=== PATIENT | female | born 1935 | race Caucasian/White ===

== ENCOUNTER 2018-03-07 22:47 | Inpatient (IN) | payer MEDICARE ==
[~2018-03-07] VITALS: Ht 162.6 cm; Wt 83.1 kg
[~2018-03-07 22:47] MED LIST: CEFD300C37 PO; CEPH-376 PO; CIPR250T27 PO; DOCU100C33 PO; FURO-92 PO; FURO-93 PO; FURO40TA6 PO; FURO80TA77 PO; GLIP5TAB10 PO; HYDR25TA11 PO; LISI1TAB7 PO; LOSA25TA6 PO; PIOG45TA64 PO; POLY17PO5 PO; SIMV80TA7 PO
[2018-03-07] MEDS ORDERED: SODIUM CHLORIDE FLUSH 10ML SYR IVF ONE (23:30)
[2018-03-08 00:22] LABS: CULTURE INDICATED? YES; MICROSCOPIC INDICATED
[2018-03-08 00:30] LABS: BASOPHILS # (AUTO) 0.01 x10^3/uL (0-0.1); BASOPHILS % (AUTO) 0 % (0-1); EOSINOPHILS # (AUTO) 0.26 x10^3/uL (0-0.4); EOSINOPHILS % (AUTO) 4 % (1-7); LYMPHOCYTES # (AUTO) 1.41 x10^3/uL (1-3.4); LYMPHOCYTES % (AUTO) 24 % (22-44); MD NO; MEAN CORPUSCULAR HEMOGLOBIN 32.4 pg (27.0-34.8); MEAN CORPUSCULAR HGB CONC 33.3 g/dL (32.4-35.8); MEAN CORPUSCULAR VOLUME 97.3 fL (80-100); MEAN PLATELET VOLUME 7.3 fL (7.4-10.4); MONOCYTES # (AUTO) 0.47 x10^3/uL (0.2-0.8); MONOCYTES % (AUTO) 8 % (2-9); NEUTROPHILS # (AUTO) 3.75 x10^3/uL (1.8-6.8); NEUTROPHILS % (AUTO) 64 % (42-75); PLATELET COUNT 311 x10^3/uL (130-400); RED BLOOD COUNT 3.17 x10^6/uL (3.82-5.3); RED CELL DISTRIBUTION WIDTH 13.9 % (9.6-15.2)
[2018-03-08 00:38] LABS: ALANINE AMINOTRANSFERASE 20 U/L (12-78); ALBUMIN 3.3 g/dL (3.4-5.0); ANION GAP 11 mmol/L (5-15); CALCIUM 9.2 mg/dL (8.5-10.1); CHLORIDE 108 mmol/L (98-107); INTERNATIONAL NORMALIZED RATIO 0.98 (0.93-1.1); PROTHROMBIN TIME 10.1 Seconds (9.6-11.5)
[2018-03-08 00:41] LABS: ALKALINE PHOSPHATASE 112 U/L (45-117); BILIRUBIN,TOTAL 0.3 mg/dL (0.2-1.0); CREATININE 1.87 mg/dL (0.55-1.02); TOTAL PROTEIN 8.1 g/dL (6.4-8.2)
[2018-03-08] MEDS ORDERED: CEFTRIAXONE PMX 1GM/50ML 50 ML ONE (02:09)
[2018-03-08] MEDS ORDERED: CEFTRIAXONE 1,000 MG in SODIUM CHLORIDE 0.9% 50 ML IV ONE (02:30)
[2018-03-08] MEDS ORDERED: GLYCERIN ADULT SUPP PR ONE (02:30)
[2018-03-08] MEDS ORDERED: CEFTRIAXONE PMX 1GM/50ML 50 ML IV ONE (03:00)
[2018-03-08 03:35] VITALS: BP 158/67
[2018-03-08 03:43] VITALS: BP 158/67
[2018-03-08] MEDS ORDERED: POLYETHYLENE GLYCOL 17 GM PACKET PO PRN (04:00)
[2018-03-08] MEDS ORDERED: BISACODYL 10 MG SUPP PR PRN (04:00)
[2018-03-08] MEDS ORDERED: MAGNESIUM CITRATE 300ML ORAL SOL PO ONE (04:00)
[2018-03-08] MEDS ORDERED: hydrALAzine 20 MG/ML, 1ML IVPush PRN (04:00)
[2018-03-08] MEDS ORDERED: DOCUSATE 100 MG CAPSULE PO PRN (04:00)
[2018-03-08] MEDS ORDERED: LABETALOL 5MG/ML, 20ML IVPush PRN (04:00)
[2018-03-08] MEDS ORDERED: ONDANSETRON ODT 4 MG PO PRN (04:00)
[2018-03-08] MEDS ORDERED: PROMETHAZINE 25 MG/ML, 1ML IM PRN (04:00)
[2018-03-08] MEDS ORDERED: ONDANSETRON 2MG/ML, 2ML IVPush PRN (04:00)
[2018-03-08] MEDS ORDERED: ACETAMINOPHEN 325 MG TABLET PO PRN (04:00)
[2018-03-08] MEDS: HEPARIN 5,000 UNITS/ML, 1ML SQ SCH ×3 (04:08→20:01)
[2018-03-08 04:41] LABS: FREE T4 (FREE THYROXINE) 1.16 ng/dL (0.76-1.46); THYROID STIMULATING HORMONE 2.99 mIU/L (0.358-3.740)
[2018-03-08 04:43] LABS: HEMOGLOBIN A1C 9.1 % (4.2-6.3)
[2018-03-08 08:46] VITALS: BP 151/65
[2018-03-08] MEDS: SENNA/DOCUSATE TABLET PO SCH ×2 (09:00→19:19)
[2018-03-08] MEDS: INSULIN LISPRO 100 UNITS/ML, PEN SQ-INSULIN SCH ×3 (12:50→20:01)
[2018-03-08 14:30] VITALS: BP 125/65
[2018-03-08 18:47] VITALS: BP 129/62
[2018-03-09 01:53] VITALS: BP 113/56
[2018-03-09] MEDS: CEFTRIAXONE PMX 1GM/50ML 50 ML IV SCH ×2 (02:22→09:27)
[2018-03-09] MEDS: HEPARIN 5,000 UNITS/ML, 1ML SQ SCH ×3 (04:18→21:28)
[2018-03-09 05:05] LABS: BASOPHILS # (AUTO) 0.02 x10^3/uL (0-0.1); BASOPHILS % (AUTO) 1 % (0-1); EOSINOPHILS # (AUTO) 0.23 x10^3/uL (0-0.4); EOSINOPHILS % (AUTO) 5 % (1-7); LYMPHOCYTES # (AUTO) 2.14 x10^3/uL (1-3.4); LYMPHOCYTES % (AUTO) 46 % (22-44); MD NO; MEAN CORPUSCULAR HEMOGLOBIN 33.4 pg (27.0-34.8); MEAN CORPUSCULAR HGB CONC 34.5 g/dL (32.4-35.8); MEAN CORPUSCULAR VOLUME 96.8 fL (80-100); MEAN PLATELET VOLUME 7.4 fL (7.4-10.4); MONOCYTES # (AUTO) 0.45 x10^3/uL (0.2-0.8); MONOCYTES % (AUTO) 10 % (2-9); NEUTROPHILS # (AUTO) 1.82 x10^3/uL (1.8-6.8); NEUTROPHILS % (AUTO) 39 % (42-75); PLATELET COUNT 278 x10^3/uL (130-400)
[2018-03-09 05:12] LABS: ALBUMIN 2.7 g/dL (3.4-5.0); ANION GAP 8 mmol/L (5-15); CALCIUM 8.2 mg/dL (8.5-10.1); CHLORIDE 110 mmol/L (98-107)
[2018-03-09 05:15] LABS: ALANINE AMINOTRANSFERASE 14 U/L (12-78); ALKALINE PHOSPHATASE 94 U/L (45-117); BILIRUBIN,TOTAL 0.2 mg/dL (0.2-1.0); CHOL/HDL RATIO 4.4; CHOLESTEROL, TOTAL 132 mg/dL (140-239); HDL CHOL % 23 % (28-40); HDL CHOLESTEROL (DIRECT) 30 mg/dL (40-60); LDL CHOLESTEROL,CALCULATED 73 mg/dL (54-169); LDL/HDL RATIO 2.4 (0.5-3.0); TOTAL PROTEIN 6.8 g/dL (6.4-8.2); TRIGLYCERIDES 147 mg/dL (50-200); VLDL CHOLESTEROL 29 mg/dL (0-25)
[2018-03-09 07:33] VITALS: BP 111/63
[2018-03-09] MEDS: INSULIN LISPRO 100 UNITS/ML, PEN SQ-INSULIN SCH ×4 (07:37→21:00)
[2018-03-09] MEDS: SENNA/DOCUSATE TABLET PO SCH ×2 (09:00→21:00)
[2018-03-09] MEDS: SODIUM CHLORIDE 0.9% 1,000 ML IV SCH ×2 (09:37→18:43)
[2018-03-09 12:40] VITALS: BP 135/69
[2018-03-09 18:40] VITALS: BP 159/71
[2018-03-10 01:49] VITALS: BP 126/64
[2018-03-10] MEDS: SODIUM CHLORIDE 0.9% 1,000 ML IV SCH ×2 (03:20→12:20)
[2018-03-10] MEDS: CEFTRIAXONE PMX 1GM/50ML 50 ML IV SCH (03:20)
[2018-03-10] MEDS: HEPARIN 5,000 UNITS/ML, 1ML SQ SCH ×2 (03:20→12:00)
[2018-03-10 05:14] LABS: BASOPHILS # (AUTO) 0.01 x10^3/uL (0-0.1); BASOPHILS % (AUTO) 0 % (0-1); EOSINOPHILS % (AUTO) 6 % (1-7); LYMPHOCYTES # (AUTO) 1.97 x10^3/uL (1-3.4); LYMPHOCYTES % (AUTO) 41 % (22-44); MD NO; MEAN CORPUSCULAR HEMOGLOBIN 33.6 pg (27.0-34.8); MEAN CORPUSCULAR HGB CONC 34.8 g/dL (32.4-35.8); MEAN CORPUSCULAR VOLUME 96.5 fL (80-100); MEAN PLATELET VOLUME 7.4 fL (7.4-10.4); MONOCYTES # (AUTO) 0.43 x10^3/uL (0.2-0.8); MONOCYTES % (AUTO) 9 % (2-9); NEUTROPHILS # (AUTO) 2.14 x10^3/uL (1.8-6.8); NEUTROPHILS % (AUTO) 44 % (42-75); PLATELET COUNT 243 x10^3/uL (130-400); RED BLOOD COUNT 2.51 x10^6/uL (3.82-5.3); RED CELL DISTRIBUTION WIDTH 14.1 % (9.6-15.2)
[2018-03-10 05:29] LABS: CALCIUM 8.3 mg/dL (8.5-10.1); CHLORIDE 114 mmol/L (98-107)
[2018-03-10 05:33] LABS: ANION GAP 12 mmol/L (5-15); CREATININE 1.39 mg/dL (0.55-1.02)
[2018-03-10 06:55] VITALS: BP 138/67
[2018-03-10] MEDS: INSULIN LISPRO 100 UNITS/ML, PEN SQ-INSULIN SCH ×2 (07:00→12:20)
[2018-03-10] MEDS: SENNA/DOCUSATE TABLET PO SCH (10:15)
[2018-03-10 12:54] VITALS: BP 153/70
[2018-03-10] MEDS ORDERED: CIPR500T87 PO (13:52)
== END 2018-03-10 17:29 | disposition home health service (06) | DRG 689 ==
LOC: ED 23:59 → EDIP 03-08 02:19 → 3NE 03-08 03:18
PROVIDERS: ADMIT Internal Medicine; ATTEND Internal Medicine
PROC: 0T9B70Z Drainage of Bladder with Drainage Device, Via Natural or Artificial Opening (ICD-10-PCS; principal; 2018-03-08)
DX: N30.91 Cystitis, unspecified with hematuria (principal); N17.0 Acute kidney failure with tubular necrosis; N18.4 Chronic kidney disease, stage 4 (severe); K56.41 Fecal impaction; E11.22 Type 2 diabetes mellitus with diabetic chronic kidney disease; D63.8 Anemia in other chronic diseases classified elsewhere; F03.90 Unspecified dementia, unspecified severity, without behavioral disturbance, psychotic disturbance, mood disturbance, and anxiety; I12.9 Hypertensive chronic kidney disease with stage 1 through stage 4 chronic kidney disease, or unspecified chronic kidney disease; K80.20 Calculus of gallbladder without cholecystitis without obstruction; K44.9 Diaphragmatic hernia without obstruction or gangrene; I87.2 Venous insufficiency (chronic) (peripheral); G89.29 Other chronic pain; Z86.14 Personal history of Methicillin resistant Staphylococcus aureus infection; Z79.899 Other long term (current) drug therapy; Z79.1 Long term (current) use of non-steroidal anti-inflammatories (NSAID); Z79.2 Long term (current) use of antibiotics; Z98.49 Cataract extraction status, unspecified eye
CPT/HCPCS: 36415; 74176; 80048; 80053; 80061; 81001; 82306; 82607; 82962; 83036; 83690; 83735; 84100; 84439; 84443; 85025; 85610; 85730; 87077; 87086; 87186; 96365; G0378; J0696; J1644; J1815; J7030

== ENCOUNTER 2018-05-28 11:18 | Inpatient (IN) | payer MEDICARE ==
[~2018-05-28] VITALS: Ht 162.6 cm; Wt 81.8 kg
[~2018-05-28 11:18] MED LIST changes: +CIPR500T87 PO; +LOSA25TA25 PO; -LOSA25TA6 PO
--- NOTE | 2018-05-28 11:50 | NUR ---
ASSUMED CARE FROM KELLI ALLISON AT THIS TIME.
--- NOTE | 2018-05-28 12:19 | NUR ---
PT ARRIVES TO ED WITH SEVERE BLADDER PAIN AND DISTENTION. PT ON ARRIVAL IS UNABLE TO LAY FLAT WITHOUT DISCOMFORT. PT REPORTS THAT SHE HAS ATTEMTPED TO SELF CATH X2 AT HOME AND NO URINE CAME OUT. PT REPORTS THAT SHE HAS URGENCY AND IS UNABLE TO GO. PT HAD MENDOZA INSERTED BY THIS RN AND EASILY 500CC OF URINE CAME OUT. PT WAS BLADDER SCANNED BEFORE HAND AND HAD >873ML. PT CONNECTED TO MONITORS AND CALL LIGHT IN REACH.
[2018-05-28 12:34] LABS: BASOPHILS # (AUTO) 0.02 x10^3/uL (0-0.1); BASOPHILS % (AUTO) 0 % (0-1); EOSINOPHILS # (AUTO) 0.15 x10^3/uL (0-0.4); EOSINOPHILS % (AUTO) 3 % (1-7); LYMPHOCYTES # (AUTO) 1.61 x10^3/uL (1-3.4); LYMPHOCYTES % (AUTO) 27 % (22-44); MD NO; MEAN CORPUSCULAR HEMOGLOBIN 33.3 pg (27.0-34.8); MEAN CORPUSCULAR HGB CONC 34.8 g/dL (32.4-35.8); MEAN CORPUSCULAR VOLUME 95.5 fL (80-100); MEAN PLATELET VOLUME 7.3 fL (7.4-10.4); MONOCYTES # (AUTO) 0.45 x10^3/uL (0.2-0.8); MONOCYTES % (AUTO) 8 % (2-9); NEUTROPHILS # (AUTO) 3.66 x10^3/uL (1.8-6.8); NEUTROPHILS % (AUTO) 62 % (42-75); PLATELET COUNT 259 x10^3/uL (130-400); RED BLOOD COUNT 2.95 x10^6/uL (3.82-5.3); RED CELL DISTRIBUTION WIDTH 13.1 % (9.6-15.2)
[2018-05-28 12:38] LABS: ALANINE AMINOTRANSFERASE 30 U/L (12-78); ALBUMIN 3.5 g/dL (3.4-5.0); ANION GAP 10 mmol/L (5-15); CALCIUM 9.1 mg/dL (8.5-10.1); CHLORIDE 106 mmol/L (98-107); CREATININE 2.51 mg/dL (0.55-1.02)
[2018-05-28 12:40] LABS: ALKALINE PHOSPHATASE 98 U/L (45-117); BILIRUBIN,TOTAL 0.3 mg/dL (0.2-1.0); TOTAL PROTEIN 7.8 g/dL (6.4-8.2)
[2018-05-28 12:41] LABS: CULTURE INDICATED? YES; MICROSCOPIC INDICATED
--- NOTE | 2018-05-28 13:27 | NUR ---
PIV PLACED IN PT. FOLER STILL DRAINING AT THIS TIME.
--- NOTE | 2018-05-28 13:45 | NUR ---
SPOKE WITH MD ABOUT SEPSIS, MD AT THIS TIME IS NOT CONCERNED FOR SEPSIS AT THIS TIME. MD TO DOCUMENT ON HIS CHART.
[2018-05-28] MEDS ORDERED: POLYETHYLENE GLYCOL 17 GM PACKET PO PRN ×2 (14:00)
[2018-05-28] MEDS ORDERED: LABETALOL 5MG/ML, 20ML IVPush PRN (14:00)
[2018-05-28] MEDS ORDERED: DOCUSATE 100 MG CAPSULE PO PRN (14:00)
[2018-05-28] MEDS ORDERED: CEFTRIAXONE PMX 1GM/50ML 50 ML IV ONE (14:00)
[2018-05-28] MEDS ORDERED: ONDANSETRON 2MG/ML, 2ML IVPush PRN (14:00)
[2018-05-28] MEDS ORDERED: BISACODYL 10 MG SUPP PR PRN (14:00)
[2018-05-28] MEDS ORDERED: ACETAMINOPHEN 325 MG TABLET PO PRN (14:00)
[2018-05-28 14:31] VITALS: BP 167/67
[2018-05-28] MEDS: HEPARIN 5,000 UNITS/ML, 1ML SQ SCH ×2 (15:13→22:17)
[2018-05-28] MEDS: CEFTRIAXONE PMX 1GM/50ML 50 ML IV SCH (16:37)
[2018-05-28] MEDS: INSULIN LISPRO 100 UNITS/ML, PEN SQ-INSULIN SCH ×2 (16:54→22:19)
[2018-05-28 19:45] VITALS: BP 118/51
[2018-05-28] MEDS: SIMVASTATIN 40 MG TABLET PO SCH (22:18)
[2018-05-28] MEDS: SODIUM CHLORIDE FLUSH 10ML SYR IVF SCH (22:19)
[2018-05-29 02:17] VITALS: BP 113/53
[2018-05-29 04:52] LABS: BASOPHILS # (AUTO) 0.02 x10^3/uL (0-0.1); BASOPHILS % (AUTO) 1 % (0-1); EOSINOPHILS # (AUTO) 0.23 x10^3/uL (0-0.4); EOSINOPHILS % (AUTO) 5 % (1-7); LYMPHOCYTES # (AUTO) 2.06 x10^3/uL (1-3.4); LYMPHOCYTES % (AUTO) 44 % (22-44); MD NO; MEAN CORPUSCULAR HEMOGLOBIN 33.4 pg (27.0-34.8); MEAN CORPUSCULAR HGB CONC 34.8 g/dL (32.4-35.8); MEAN PLATELET VOLUME 7.2 fL (7.4-10.4); MONOCYTES # (AUTO) 0.44 x10^3/uL (0.2-0.8); MONOCYTES % (AUTO) 9 % (2-9); NEUTROPHILS # (AUTO) 1.96 x10^3/uL (1.8-6.8); NEUTROPHILS % (AUTO) 42 % (42-75); PLATELET COUNT 243 x10^3/uL (130-400); RED BLOOD COUNT 2.61 x10^6/uL (3.82-5.3); RED CELL DISTRIBUTION WIDTH 13.2 % (9.6-15.2)
[2018-05-29 04:58] LABS: ANION GAP 8 mmol/L (5-15); CALCIUM 8.4 mg/dL (8.5-10.1); CHLORIDE 111 mmol/L (98-107); CREATININE 1.81 mg/dL (0.55-1.02)
[2018-05-29] MEDS: HEPARIN 5,000 UNITS/ML, 1ML SQ SCH ×3 (06:34→22:56)
[2018-05-29 06:42] VITALS: BP 116/62
[2018-05-29] MEDS: INSULIN LISPRO 100 UNITS/ML, PEN SQ-INSULIN SCH ×4 (07:00→22:57)
[2018-05-29] MEDS: SODIUM CHLORIDE FLUSH 10ML SYR IVF SCH ×2 (09:00→18:21)
[2018-05-29] MEDS: LOSARTAN 25MG TABLET PO SCH (09:55)
[2018-05-29] MEDS: PIOGLITAZONE 15 MG TABLET PO SCH (09:56)
[2018-05-29 12:43] VITALS: BP 133/63
[2018-05-29] MEDS: CEFTRIAXONE PMX 1GM/50ML 50 ML IV SCH (16:17)
[2018-05-29 20:00] VITALS: BP 108/52
[2018-05-29] MEDS: SIMVASTATIN 40 MG TABLET PO SCH (22:57)
[2018-05-30 02:36] VITALS: BP 111/63
[2018-05-30 05:59] LABS: BASOPHILS # (AUTO) 0.02 x10^3/uL (0-0.1); BASOPHILS % (AUTO) 1 % (0-1); EOSINOPHILS # (AUTO) 0.25 x10^3/uL (0-0.4); EOSINOPHILS % (AUTO) 5 % (1-7); LYMPHOCYTES # (AUTO) 2.12 x10^3/uL (1-3.4); LYMPHOCYTES % (AUTO) 42 % (22-44); MD NO; MEAN CORPUSCULAR HEMOGLOBIN 32.5 pg (27.0-34.8); MEAN CORPUSCULAR HGB CONC 33.7 g/dL (32.4-35.8); MEAN CORPUSCULAR VOLUME 96.3 fL (80-100); MEAN PLATELET VOLUME 7.5 fL (7.4-10.4); MONOCYTES # (AUTO) 0.41 x10^3/uL (0.2-0.8); MONOCYTES % (AUTO) 8 % (2-9); NEUTROPHILS # (AUTO) 2.25 x10^3/uL (1.8-6.8); NEUTROPHILS % (AUTO) 45 % (42-75); PLATELET COUNT 224 x10^3/uL (130-400); RED BLOOD COUNT 2.57 x10^6/uL (3.82-5.3)
[2018-05-30 06:15] LABS: CHLORIDE 110 mmol/L (98-107)
[2018-05-30 06:25] LABS: ANION GAP 8 mmol/L (5-15); CALCIUM 8.5 mg/dL (8.5-10.1); CREATININE 1.61 mg/dL (0.55-1.02)
[2018-05-30] MEDS: HEPARIN 5,000 UNITS/ML, 1ML SQ SCH (06:44)
[2018-05-30 06:59] VITALS: BP 111/67
[2018-05-30] MEDS: INSULIN LISPRO 100 UNITS/ML, PEN SQ-INSULIN SCH (07:00)
[2018-05-30] MEDS: PIOGLITAZONE 15 MG TABLET PO SCH (07:59)
[2018-05-30] MEDS: SODIUM CHLORIDE FLUSH 10ML SYR IVF SCH (08:00)
[2018-05-30] MEDS: LOSARTAN 25MG TABLET PO SCH (08:00)
[2018-05-30] MEDS ORDERED: FUROSEMIDE 20 MG TABLET PO SCH (09:00)
[2018-05-30 10:51] VITALS: BP 124/62
== END 2018-05-30 11:45 | disposition home or self-care (01) | DRG 682 ==
LOC: ED 13:03 → 4NOR 13:51 → ED 14:47 → DCLOUNGE 05-30 11:28
PROVIDERS: ADMIT Hospitalist; ATTEND Hospitalist
PROC: 0T9B70Z Drainage of Bladder with Drainage Device, Via Natural or Artificial Opening (ICD-10-PCS; principal; 2018-05-28)
DX: N17.9 Acute kidney failure, unspecified (principal); K85.90 Acute pancreatitis without necrosis or infection, unspecified; N39.0 Urinary tract infection, site not specified; E87.2 Acidosis; E78.5 Hyperlipidemia, unspecified; D63.8 Anemia in other chronic diseases classified elsewhere; E11.22 Type 2 diabetes mellitus with diabetic chronic kidney disease; I13.10 Hypertensive heart and chronic kidney disease without heart failure, with stage 1 through stage 4 chronic kidney disease, or unspecified chronic kidney disease; E11.65 Type 2 diabetes mellitus with hyperglycemia; F03.90 Unspecified dementia, unspecified severity, without behavioral disturbance, psychotic disturbance, mood disturbance, and anxiety; I35.0 Nonrheumatic aortic (valve) stenosis; R01.1 Cardiac murmur, unspecified; I87.2 Venous insufficiency (chronic) (peripheral); N18.4 Chronic kidney disease, stage 4 (severe); Z66 Do not resuscitate; Z79.84 Long term (current) use of oral hypoglycemic drugs; Z83.3 Family history of diabetes mellitus
CPT/HCPCS: 36415; 80048; 80053; 81001; 82962; 83036; 83605; 83690; 85025; 87086; 93306; 99285; G0378; J0696; J1644; J1815

== ENCOUNTER 2018-10-20 11:53 | Inpatient (IN) | payer MEDICARE ==
[~2018-10-20] VITALS: Ht 162.6 cm; Wt 77.1 kg
[~2018-10-20 11:53] MED LIST changes: +SIMV80TA18 PO; -SIMV80TA7 PO
[2018-10-20] MEDS ORDERED: SODIUM CHLORIDE FLUSH 10ML SYR IVF ONE (12:00)
[2018-10-20] MEDS ORDERED: levemir (12:01)
--- NOTE | 2018-10-20 12:03 | NUR ---
pt bib remsa for genealized weakness x3 months, worse over last 3 days. per ems, stated that pt has slid off couch onto the floor multiple times recently. pt denies injury. today, was unable to help pt off floor and ems was called. pt connected to all monitors. vss. edmd present for assessment. ekg complete. awaiting orders.
[2018-10-20 12:32] LABS: BASOPHILS # (AUTO) 0.02 x10^3/uL (0-0.1); BASOPHILS % (AUTO) 0 % (0-1); EOSINOPHILS # (AUTO) 0.06 x10^3/uL (0-0.4); EOSINOPHILS % (AUTO) 1 % (1-7); LYMPHOCYTES # (AUTO) 1.18 x10^3/uL (1-3.4); LYMPHOCYTES % (AUTO) 29 % (22-44); MD NO; MEAN CORPUSCULAR HEMOGLOBIN 31.4 pg (27.0-34.8); MEAN CORPUSCULAR HGB CONC 32.7 g/dL (32.4-35.8); MONOCYTES # (AUTO) 0.27 x10^3/uL (0.2-0.8); MONOCYTES % (AUTO) 7 % (2-9); NEUTROPHILS # (AUTO) 2.58 x10^3/uL (1.8-6.8); NEUTROPHILS % (AUTO) 63 % (42-75); PLATELET COUNT 314 x10^3/uL (130-400); RED BLOOD COUNT 3.09 x10^6/uL (3.82-5.3); RED CELL DISTRIBUTION WIDTH 13.1 % (9.6-15.2)
--- NOTE | 2018-10-20 12:38 | NUR ---
MENDOZA PLACED FOR BLADDER SCAN OF 1000ML- SAMPLE OBTAINED GROIN WITH MODERATE AMOUNT OF DRIED STOOL THROUGHOUT
[2018-10-20 12:46] LABS: ALBUMIN 3.3 g/dL (3.4-5.0); ANION GAP 13 mmol/L (5-15); CALCIUM 9.2 mg/dL (8.5-10.1); CHLORIDE 96 mmol/L (98-107)
[2018-10-20 12:49] LABS: MICROSCOPIC AUTO
[2018-10-20 12:53] LABS: ALANINE AMINOTRANSFERASE 17 U/L (12-78); ALKALINE PHOSPHATASE 71 U/L (45-117); BILIRUBIN,TOTAL 0.6 mg/dL (0.2-1.0); CREATININE 4.83 mg/dL (0.55-1.02); TOTAL PROTEIN 7.9 g/dL (6.4-8.2); TROPONIN I 0.031 ng/mL (0.000-0.045)
[2018-10-20 12:56] LABS: CULTURE INDICATED? YES
[2018-10-20 13:02] LABS: T4 (THYROXINE) 10.1 mcg/dL (4.8-13.9)
--- NOTE | 2018-10-20 13:37 | NUR ---
MENDOZA WITH 1100ML OF OUTPUT THUS FAR-CHARTED IN I/O SPOKE W/ PROVIDER IN R/T PLAN-ST START IVF FOR KIDNEY LAB RESULTS OTHERWISE PATIENT RESTING COMFORTABLY. VITALS STABLE ON STEWARD/STEWARDESS RAILROAD DINING CAR DENIES DISCOMFORT-ASKING TO DRINK TO CLARIFY W/ PROVIDER AT BEDSIDE
--- NOTE | 2018-10-20 13:46 | NUR ---
MEDICATED PER EMAR-LITER BOLUS HUNG AND NS W/ 250ML/HR TO INFUSE DIRECTLY AFTER PROCIDER TO BEDSIDE TO UPDATE PLAN (ADMIT FOR KIDNEY FAILURE TX) PATIENT PROVIDED W/ PO FLUIDS AFTER CLARIFICATION W/ PROVIDER (SWALLOW EXAM FIRST-PASSED)
--- NOTE | 2018-10-20 13:48 | NUR ---
(MAYELA MURCIA) [phone] LEFT TO GO TO COMMITMENT. TO BE CONTACTED WITH ANY UPDATES HE PLANS TO RETURN TO HOSPITAL THIS EVENING
[2018-10-20] MEDS ORDERED: SODIUM CHLORIDE 0.9% 1,000ML IVBOLUS ONE (14:00)
[2018-10-20] MEDS ORDERED: SODIUM CHLORIDE 0.9% 1,000 ML IV ONE (14:00)
--- NOTE | 2018-10-20 14:37 | NUR ---
HOSPITALIST AT BEDSIDE MEDICAL BILLING SERVICE CLARIFIED PERMISSION FOR DIET-PROVIDER AGREEABLE MEDICAL BILLING SERVICE HELPED PATIENT TAKE CRANBERRRY JUICE/SALTINES/STRING CHEESE VITALS REMAIN UNCHANGED ON SCREW DOWN CALL SÁNCHEZ IN HAND/ SIDE RAILS UP
--- NOTE | 2018-10-20 14:42 | NUR ---
PATIENT MOVED TO HOSPITAL BED
[2018-10-20] MEDS ORDERED: ACETAMINOPHEN 325 MG TABLET PO PRN (15:00)
[2018-10-20] MEDS ORDERED: LABETALOL 5MG/ML, 20ML IVPush PRN (15:00)
[2018-10-20] MEDS ORDERED: POLYETHYLENE GLYCOL 17 GM PACKET PO PRN (15:00)
[2018-10-20] MEDS ORDERED: DEXTROSE 4 GM TAB.CHEW PO PRN (15:00)
[2018-10-20] MEDS ORDERED: ONDANSETRON 2MG/ML, 2ML IVPush PRN (15:00)
[2018-10-20] MEDS ORDERED: BISACODYL 10 MG SUPP PR PRN (15:00)
[2018-10-20] MEDS ORDERED: hydrALAzine 20 MG/ML, 1ML IVPush PRN (15:00)
[2018-10-20] MEDS ORDERED: GLUCAGON 1 MG IM PRN (15:00)
[2018-10-20] MEDS ORDERED: DOCUSATE 100 MG CAPSULE PO PRN (15:00)
[2018-10-20] MEDS ORDERED: DEXTROSE 50%, 50ML SYRINGE IVPush PRN (15:00)
[2018-10-20] MEDS ORDERED: ONDANSETRON ODT 4 MG PO PRN (15:00)
[2018-10-20 16:10] LABS: HEMOGLOBIN A1C 11.2 % (4.2-6.3)
[2018-10-20] MEDS: SODIUM CHLORIDE 0.9% 1,000 ML IV SCH (16:35)
[2018-10-20] MEDS: INSULIN LISPRO 100 UNITS/ML, PEN SQ-INSULIN SCH ×2 (16:46→20:16)
[2018-10-20 19:41] VITALS: BP 100/55
[2018-10-20] MEDS: HEPARIN 5,000 UNITS/ML, 1ML SQ SCH (20:15)
[2018-10-20] MEDS: SODIUM CHLORIDE FLUSH 10ML SYR IVF SCH (20:16)
[2018-10-21 00:05] VITALS: BP 102/50
[2018-10-21] MEDS: SODIUM CHLORIDE 0.9% 1,000 ML IV SCH ×3 (01:20→20:56)
[2018-10-21 05:14] LABS: ALBUMIN 2.7 g/dL (3.4-5.0); ANION GAP 10 mmol/L (5-15); BASOPHILS # (AUTO) 0.01 x10^3/uL (0-0.1); BASOPHILS % (AUTO) 0 % (0-1); CALCIUM 8.1 mg/dL (8.5-10.1); CHLORIDE 103 mmol/L (98-107); EOSINOPHILS % (AUTO) 2 % (1-7); LYMPHOCYTES # (AUTO) 1.61 x10^3/uL (1-3.4); LYMPHOCYTES % (AUTO) 39 % (22-44); MD NO; MEAN CORPUSCULAR HEMOGLOBIN 32.4 pg (27.0-34.8); MEAN CORPUSCULAR HGB CONC 33.7 g/dL (32.4-35.8); MEAN CORPUSCULAR VOLUME 96.3 fL (80-100); MEAN PLATELET VOLUME 7.1 fL (7.4-10.4); MONOCYTES # (AUTO) 0.35 x10^3/uL (0.2-0.8); MONOCYTES % (AUTO) 9 % (2-9); NEUTROPHILS # (AUTO) 2.01 x10^3/uL (1.8-6.8); NEUTROPHILS % (AUTO) 49 % (42-75); PLATELET COUNT 263 x10^3/uL (130-400); RED BLOOD COUNT 2.68 x10^6/uL (3.82-5.3); RED CELL DISTRIBUTION WIDTH 13.2 % (9.6-15.2)
[2018-10-21 05:17] LABS: ALANINE AMINOTRANSFERASE 17 U/L (12-78); ALKALINE PHOSPHATASE 59 U/L (45-117); BILIRUBIN,TOTAL 0.5 mg/dL (0.2-1.0); CREATININE 3.65 mg/dL (0.55-1.02); TOTAL PROTEIN 6.6 g/dL (6.4-8.2)
[2018-10-21] MEDS: HEPARIN 5,000 UNITS/ML, 1ML SQ SCH ×3 (05:52→20:55)
[2018-10-21] MEDS ORDERED: MAGNESIUM HYDROXIDE 8%, 30ML UDC PO PRN (08:00)
[2018-10-21 08:13] VITALS: BP 103/56
[2018-10-21] MEDS: SODIUM CHLORIDE FLUSH 10ML SYR IVF SCH ×2 (08:47→20:55)
[2018-10-21] MEDS: INSULIN LISPRO 100 UNITS/ML, PEN SQ-INSULIN SCH ×4 (08:47→20:55)
[2018-10-21 08:50] LABS: RED BLOOD COUNT 2.68 x10^6/uL (3.82-5.3)
[2018-10-21 08:54] LABS: ABSOLUTE RETICS # 0.044 x10^6/uL (0.5-2.5); RETICULOCYTE COUNT % 1.6 % (0.5-1.5)
[2018-10-21 10:03] LABS: CREATININE,URINE RANDOM 43.4 mg/dL
[2018-10-21 14:03] VITALS: BP 104/55
[2018-10-21 15:45] LABS: ANION GAP 9 mmol/L (5-15); CALCIUM 8.1 mg/dL (8.5-10.1); CHLORIDE 104 mmol/L (98-107); CREATININE 3.24 mg/dL (0.55-1.02)
[2018-10-21] MEDS ORDERED: POTASSIUM CHLORIDE 20 MEQ TAB.ER.PRT PO ONE (16:30)
[2018-10-21 19:39] VITALS: BP 96/56
[2018-10-21] MEDS: INSULIN GLARGINE 100 UNITS/ML, PEN SQ-INSULIN SCH (20:56)
[2018-10-22] MEDS: SODIUM CHLORIDE 0.9% 1,000 ML IV SCH ×3 (02:50→17:12)
[2018-10-22 03:16] VITALS: BP 101/52
[2018-10-22] MEDS: HEPARIN 5,000 UNITS/ML, 1ML SQ SCH ×3 (04:57→20:04)
[2018-10-22 05:40] LABS: BASOPHILS # (AUTO) 0.01 x10^3/uL (0-0.1); BASOPHILS % (AUTO) 0 % (0-1); EOSINOPHILS # (AUTO) 0.08 x10^3/uL (0-0.4); EOSINOPHILS % (AUTO) 2 % (1-7); LYMPHOCYTES # (AUTO) 1.56 x10^3/uL (1-3.4); LYMPHOCYTES % (AUTO) 36 % (22-44); MD NO; MEAN CORPUSCULAR HEMOGLOBIN 32.1 pg (27.0-34.8); MEAN CORPUSCULAR VOLUME 97.4 fL (80-100); MEAN PLATELET VOLUME 7.1 fL (7.4-10.4); MONOCYTES % (AUTO) 9 % (2-9); NEUTROPHILS # (AUTO) 2.34 x10^3/uL (1.8-6.8); NEUTROPHILS % (AUTO) 53 % (42-75); PLATELET COUNT 246 x10^3/uL (130-400); RED BLOOD COUNT 2.53 x10^6/uL (3.82-5.3); RED CELL DISTRIBUTION WIDTH 13.3 % (9.6-15.2)
[2018-10-22 05:43] LABS: ANION GAP 8 mmol/L (5-15); CALCIUM 8.3 mg/dL (8.5-10.1); CHLORIDE 110 mmol/L (98-107)
[2018-10-22 05:46] LABS: CREATININE 2.54 mg/dL (0.55-1.02)
[2018-10-22 07:30] VITALS: BP 98/51
[2018-10-22] MEDS: INSULIN LISPRO 100 UNITS/ML, PEN SQ-INSULIN SCH ×4 (07:57→20:05)
[2018-10-22] MEDS: SODIUM CHLORIDE FLUSH 10ML SYR IVF SCH ×2 (07:57→20:04)
[2018-10-22 14:30] VITALS: BP 128/66
[2018-10-22 20:00] VITALS: BP 117/67
[2018-10-22] MEDS: INSULIN GLARGINE 100 UNITS/ML, PEN SQ-INSULIN SCH (20:05)
[2018-10-23] MEDS: SODIUM CHLORIDE 0.9% 1,000 ML IV SCH ×4 (00:04→21:48)
[2018-10-23 01:51] VITALS: BP 124/63
[2018-10-23] MEDS: HEPARIN 5,000 UNITS/ML, 1ML SQ SCH ×3 (05:14→20:08)
[2018-10-23] MEDS: INSULIN LISPRO 100 UNITS/ML, PEN SQ-INSULIN SCH ×4 (07:55→20:09)
[2018-10-23 08:45] VITALS: BP 123/54
[2018-10-23] MEDS: SODIUM CHLORIDE FLUSH 10ML SYR IVF SCH ×2 (09:00→20:09)
[2018-10-23 11:00] LABS: BASOPHILS # (AUTO) 0.02 x10^3/uL (0-0.1); BASOPHILS % (AUTO) 0 % (0-1); EOSINOPHILS # (AUTO) 0.13 x10^3/uL (0-0.4); EOSINOPHILS % (AUTO) 3 % (1-7); LYMPHOCYTES # (AUTO) 1.37 x10^3/uL (1-3.4); LYMPHOCYTES % (AUTO) 31 % (22-44); MD NO; MEAN CORPUSCULAR HEMOGLOBIN 32.8 pg (27.0-34.8); MEAN CORPUSCULAR HGB CONC 33.9 g/dL (32.4-35.8); MONOCYTES # (AUTO) 0.31 x10^3/uL (0.2-0.8); MONOCYTES % (AUTO) 7 % (2-9); NEUTROPHILS # (AUTO) 2.54 x10^3/uL (1.8-6.8); NEUTROPHILS % (AUTO) 58 % (42-75); PLATELET COUNT 274 x10^3/uL (130-400); RED BLOOD COUNT 2.72 x10^6/uL (3.82-5.3); RED CELL DISTRIBUTION WIDTH 13.7 % (9.6-15.2)
[2018-10-23 11:09] LABS: ALBUMIN 2.7 g/dL (3.4-5.0); ANION GAP 9 mmol/L (5-15); CALCIUM 8.1 mg/dL (8.5-10.1); CHLORIDE 112 mmol/L (98-107)
[2018-10-23 11:24] LABS: CREATININE 1.94 mg/dL (0.55-1.02)
[2018-10-23] MEDS: NEUTRA PHOS K 250 MG TABLET PO SCH ×3 (12:19→20:08)
[2018-10-23 12:20] VITALS: BP 130/67
[2018-10-23 19:58] VITALS: BP 141/64
[2018-10-24 00:53] VITALS: BP 144/62
[2018-10-24] MEDS: SODIUM CHLORIDE 0.9% 1,000 ML IV SCH (04:23)
[2018-10-24] MEDS: HEPARIN 5,000 UNITS/ML, 1ML SQ SCH ×2 (04:23→13:02)
[2018-10-24 05:36] LABS: BASOPHILS # (AUTO) 0.02 x10^3/uL (0-0.1); BASOPHILS % (AUTO) 0 % (0-1); EOSINOPHILS # (AUTO) 0.14 x10^3/uL (0-0.4); EOSINOPHILS % (AUTO) 4 % (1-7); LYMPHOCYTES # (AUTO) 1.69 x10^3/uL (1-3.4); LYMPHOCYTES % (AUTO) 42 % (22-44); MD NO; MEAN CORPUSCULAR HEMOGLOBIN 32.2 pg (27.0-34.8); MEAN CORPUSCULAR HGB CONC 33.3 g/dL (32.4-35.8); MEAN CORPUSCULAR VOLUME 96.7 fL (80-100); MEAN PLATELET VOLUME 6.6 fL (7.4-10.4); MONOCYTES # (AUTO) 0.35 x10^3/uL (0.2-0.8); MONOCYTES % (AUTO) 9 % (2-9); NEUTROPHILS # (AUTO) 1.88 x10^3/uL (1.8-6.8); NEUTROPHILS % (AUTO) 46 % (42-75); PLATELET COUNT 238 x10^3/uL (130-400); RED BLOOD COUNT 2.52 x10^6/uL (3.82-5.3); RED CELL DISTRIBUTION WIDTH 13.5 % (9.6-15.2)
[2018-10-24 05:47] LABS: ANION GAP 6 mmol/L (5-15); CALCIUM 8.1 mg/dL (8.5-10.1); CHLORIDE 115 mmol/L (98-107)
[2018-10-24 05:48] LABS: CREATININE 1.64 mg/dL (0.55-1.02)
[2018-10-24 06:55] VITALS: BP 133/57
[2018-10-24] MEDS: INSULIN LISPRO 100 UNITS/ML, PEN SQ-INSULIN SCH ×2 (07:00→11:30)
[2018-10-24] MEDS: SODIUM CHLORIDE FLUSH 10ML SYR IVF SCH (08:36)
[2018-10-24] MEDS: POTASSIUM CHLORIDE 20 MEQ TAB.ER.PRT PO SCH ×2 (08:36→13:02)
[2018-10-24] MEDS ORDERED: GLIP5TAB10 PO (09:34)
[2018-10-24 12:51] VITALS: BP 130/57
== END 2018-10-24 14:00 | disposition home health service (06) | DRG 683 ==
LOC: ED 14:51 → EDIP 14:52 → ED 15:27 → 4EST 16:07 → DCLOUNGE 10-24 13:51
PROVIDERS: ADMIT Internal Medicine; ATTEND Internal Medicine
PROC: 0T9B70Z Drainage of Bladder with Drainage Device, Via Natural or Artificial Opening (ICD-10-PCS; principal; 2018-10-20)
DX: N17.9 Acute kidney failure, unspecified (principal); E87.1 Hypo-osmolality and hyponatremia; I13.10 Hypertensive heart and chronic kidney disease without heart failure, with stage 1 through stage 4 chronic kidney disease, or unspecified chronic kidney disease; D64.9 Anemia, unspecified; E11.21 Type 2 diabetes mellitus with diabetic nephropathy; E11.22 Type 2 diabetes mellitus with diabetic chronic kidney disease; E11.65 Type 2 diabetes mellitus with hyperglycemia; E83.39 Other disorders of phosphorus metabolism; E86.1 Hypovolemia; E87.6 Hypokalemia; F03.90 Unspecified dementia, unspecified severity, without behavioral disturbance, psychotic disturbance, mood disturbance, and anxiety; I87.2 Venous insufficiency (chronic) (peripheral); N18.4 Chronic kidney disease, stage 4 (severe); Z87.440 Personal history of urinary (tract) infections; Z87.891 Personal history of nicotine dependence
CPT/HCPCS: 36415; 71045; 80048; 80053; 80069; 81001; 82436; 82570; 82728; 82962; 83036; 83540; 83550; 83605; 83735; 83935; 84100; 84133; 84300; 84436; 84443; 84484; 85025; 85045; 87086; 93005; 93970; 99291; G0378; J1644; J1815; J7030

== ENCOUNTER 2019-07-04 13:46 | Outpatient (CLI) | payer MEDICARE ==
[~2019-07-04 13:46] MED LIST changes: +HYDR-826 PO; -HYDR25TA11 PO; +LISI1TAB20 PO; -LISI1TAB7 PO; +levemir
== END 2019-07-04 23:59 | disposition home or self-care (01) ==
LOC: WOUND 13:46
PROVIDERS: ATTEND Internal Medicine
DX: I87.333 Chronic venous hypertension (idiopathic) with ulcer and inflammation of bilateral lower extremity (principal); E11.622 Type 2 diabetes mellitus with other skin ulcer; L97.822 Non-pressure chronic ulcer of other part of left lower leg with fat layer exposed; L97.812 Non-pressure chronic ulcer of other part of right lower leg with fat layer exposed; E11.621 Type 2 diabetes mellitus with foot ulcer; L97.512 Non-pressure chronic ulcer of other part of right foot with fat layer exposed; L97.522 Non-pressure chronic ulcer of other part of left foot with fat layer exposed; E11.40 Type 2 diabetes mellitus with diabetic neuropathy, unspecified; E78.2 Mixed hyperlipidemia; N13.9 Obstructive and reflux uropathy, unspecified; K21.9 Gastro-esophageal reflux disease without esophagitis; E11.22 Type 2 diabetes mellitus with diabetic chronic kidney disease; I12.9 Hypertensive chronic kidney disease with stage 1 through stage 4 chronic kidney disease, or unspecified chronic kidney disease; N18.4 Chronic kidney disease, stage 4 (severe); E11.65 Type 2 diabetes mellitus with hyperglycemia; F03.90 Unspecified dementia, unspecified severity, without behavioral disturbance, psychotic disturbance, mood disturbance, and anxiety; Z98.42 Cataract extraction status, left eye; Z98.41 Cataract extraction status, right eye
CPT/HCPCS: 97597; 97598; G0463

== ENCOUNTER → 2019-07-11 | Outpatient (CLI) | payer MEDICARE | END | disposition home or self-care (01) | LOC: WOUND 13:49 | PROVIDERS: ATTEND Internal Medicine | DX: I87.333 Chronic venous hypertension (idiopathic) with ulcer and inflammation of bilateral lower extremity (principal); E11.622 Type 2 diabetes mellitus with other skin ulcer; L97.822 Non-pressure chronic ulcer of other part of left lower leg with fat layer exposed; L97.812 Non-pressure chronic ulcer of other part of right lower leg with fat layer exposed; E11.621 Type 2 diabetes mellitus with foot ulcer; L97.512 Non-pressure chronic ulcer of other part of right foot with fat layer exposed; L97.522 Non-pressure chronic ulcer of other part of left foot with fat layer exposed; E11.40 Type 2 diabetes mellitus with diabetic neuropathy, unspecified; E78.2 Mixed hyperlipidemia; N13.9 Obstructive and reflux uropathy, unspecified; K21.9 Gastro-esophageal reflux disease without esophagitis; E11.22 Type 2 diabetes mellitus with diabetic chronic kidney disease; I12.9 Hypertensive chronic kidney disease with stage 1 through stage 4 chronic kidney disease, or unspecified chronic kidney disease; N18.4 Chronic kidney disease, stage 4 (severe); E11.65 Type 2 diabetes mellitus with hyperglycemia; F03.90 Unspecified dementia, unspecified severity, without behavioral disturbance, psychotic disturbance, mood disturbance, and anxiety; Z98.42 Cataract extraction status, left eye; Z98.41 Cataract extraction status, right eye | CPT/HCPCS: G0463 ==

== ENCOUNTER 2019-07-18 13:55 | Outpatient (CLI) | payer MEDICARE | END 2019-07-18 23:59 | disposition home or self-care (01) | LOC: WOUND 13:55 | PROVIDERS: ATTEND Internal Medicine | DX: I87.333 Chronic venous hypertension (idiopathic) with ulcer and inflammation of bilateral lower extremity (principal); E11.622 Type 2 diabetes mellitus with other skin ulcer; L97.822 Non-pressure chronic ulcer of other part of left lower leg with fat layer exposed; L97.812 Non-pressure chronic ulcer of other part of right lower leg with fat layer exposed; E11.621 Type 2 diabetes mellitus with foot ulcer; L97.512 Non-pressure chronic ulcer of other part of right foot with fat layer exposed; L97.522 Non-pressure chronic ulcer of other part of left foot with fat layer exposed; E11.40 Type 2 diabetes mellitus with diabetic neuropathy, unspecified; E78.2 Mixed hyperlipidemia; N13.9 Obstructive and reflux uropathy, unspecified; K21.9 Gastro-esophageal reflux disease without esophagitis; E11.22 Type 2 diabetes mellitus with diabetic chronic kidney disease; I12.9 Hypertensive chronic kidney disease with stage 1 through stage 4 chronic kidney disease, or unspecified chronic kidney disease; N18.4 Chronic kidney disease, stage 4 (severe); E11.65 Type 2 diabetes mellitus with hyperglycemia; F03.90 Unspecified dementia, unspecified severity, without behavioral disturbance, psychotic disturbance, mood disturbance, and anxiety; Z98.42 Cataract extraction status, left eye; Z98.41 Cataract extraction status, right eye | CPT/HCPCS: G0463 ==

== ENCOUNTER → 2019-08-08 | Outpatient (CLI) | payer MEDICARE | END | disposition home or self-care (01) | LOC: CVU 12:49 | PROVIDERS: ATTEND Internal Medicine | DX: I70.203 Unspecified atherosclerosis of native arteries of extremities, bilateral legs (principal); I77.1 Stricture of artery; E11.622 Type 2 diabetes mellitus with other skin ulcer; I87.333 Chronic venous hypertension (idiopathic) with ulcer and inflammation of bilateral lower extremity | CPT/HCPCS: 93922; 93925; 93970 ==

== ENCOUNTER 2020-05-30 10:05 | Emergency (ER) | payer MEDICARE ==
[~2020-05-30] VITALS: Ht 162.6 cm; Wt 71.0 kg
[~2020-05-30 10:05] MED LIST changes: +CALC0.25 PO; +CEPH-368 PO; +FURO20TA3 PO; +GLIM1TAB7 PO
[2020-05-30 11:20] VITALS: BP 166/63
--- NOTE | 2020-05-30 11:21 | NUR ---
DC EDUCATION PROVIDED, PT AND FAMILY MEMBER DEMONSTRATE UNDERSTANDING. PT AMBULATED STEADILY TO DC WITH RN AND FAMILY USING OWN WALKER. FAMILY TO TRANSPORT PT HOME.
== END 2020-05-30 11:22 | disposition home or self-care (01) ==
LOC: ED 10:53
DX: R60.0 Localized edema (principal); I10 Essential (primary) hypertension; E11.9 Type 2 diabetes mellitus without complications
CPT/HCPCS: 99284